=== PATIENT | female | born 1950 | race Caucasian/White ===

== ENCOUNTER 2023-07-29 21:29 | Inpatient (IN) ==
[2023-07-29] MEDS ORDERED: IOPAMIDOL 100 ML BOTTLE IV ONE (21:30)
[2023-07-29] MEDS ORDERED: 0.9 % SODIUM CHLORIDE 1,000 ML IV ONE ×2 (21:44→22:20)
[2023-07-29] MEDS ORDERED: ONDANSETRON 4 MG/2 ML VIAL IV ONE (21:44)
[2023-07-29] MEDS ORDERED: ACETAMINOPHEN 325 MG TABLET PO ONE (21:44)
[2023-07-29] MEDS ORDERED: VANCOMYCIN 1,000 MG in 0.9 % SODIUM CHLORIDE 250 ML IV ONE (21:53)
[2023-07-29 22:02] LABS: POC Calcium, Ionized 1.04 (1.16-1.32); POC Potassium 3.4 (3.3-5.1)
[2023-07-29 23:06] LABS: Basophils # (Auto) 0.03 K/mcL (0.00-0.30); Basophils % (Auto) 0.2 % (0.0-2.0); Eosinophils # (Auto) 0 K/mcL (0.00-0.70); Eosinophils % (Auto) 0 % (0.0-7.0); Hematocrit 42.4 % (34.1-44.9); Hemoglobin 13.8 g/dL (11.2-15.7); Lymphocytes # (Auto) 1.58 K/mcL (1.50-4.80); Lymphocytes % (Auto) 9.9 % (15.5-49.0); Mean Corpuscular HGB Conc 32.5 g/dL (31.0-36.0); Mean Platelet Volume 11.4 fL (8.8-12.5); Monocytes # (Auto) 1.27 K/mcL (0.10-0.90); Neutrophils % (Auto) 81.5 % (38.0-78.0); Platelet Count 193 K/mcL (140-440); RBC 4.93 M/mcL (3.59-5.38); Red Cell Distribution Width 15.5 % (11.5-14.5)
[2023-07-29 23:21] LABS: Creatine Kinase 220 U/L (24-170)
[2023-07-30 00:26] LABS: Appearance,Urine HAZY (Clear); Bilirubin,Urine Negative (Negative); Color,Urine Yellow; Culture Indicated,Urine Yes; Glucose,Urine (UA) Negative (Negative); Ketones,Urine 20 mg/dL (Negative); Leukocyte Esterase,Urine Negative /uL (Negative); Mucus,Urine FEW /hpf; Nitrate,Urine Negative (Negative); Protein,Urine 100 mg/dL (Negative); Specific Gravity,Urine 1.024 (1.000-1.035); Urine Budding Yeast FEW /hpf; Urine Granular Cast 20 /lph (0-0); Urine RBC 1 /hpf (0-3); Urine Squamous Epithelial Cell < 1 /hpf (0-4); Urine WBC 5 /hpf (0-4); Urobilinogen,Urine Negative
[2023-07-30] MEDS: 0.9 % SODIUM CHLORIDE 250 ML IV SCH ×4 (00:31→13:55)
[2023-07-30] MEDS ORDERED: LEVOFLOXACIN 750 MG/150 ML BAG IV ONE (00:44)
[2023-07-30] MEDS: SODIUM CHLORIDE 0.9% IV SCH ×2 (00:45→08:16)
[2023-07-30] MEDS: NOREPINEPHRINE BITARTRATE IV SCH ×2 (00:45→08:16)
[2023-07-30] MEDS ORDERED: IPRATROPIUM/ALBUTEROL 3 ML AMPUL.NEB NEB ONE ×2 (00:50→06:58)
[2023-07-30] MEDS ORDERED: SENNOSIDES 1 TABLET PO PRN (03:07)
[2023-07-30] MEDS ORDERED: 0.9 % SODIUM CHLORIDE 1,000 ML IV SCH (03:07)
[2023-07-30] MEDS ORDERED: ALBUTEROL SULFATE 2.5 MG/3 ML NEBULIZER NEB PRN (03:07)
[2023-07-30] MEDS ORDERED: LACTULOSE 20 GM/30 ML ORAL.SOL PO PRN (03:07)
[2023-07-30] MEDS ORDERED: ONDANSETRON 4 MG/2 ML VIAL IV PRN (03:07)
[2023-07-30] MEDS: IPRATROPIUM/ALBUTEROL 3 ML AMPUL.NEB NEB SCH ×2 (03:13→07:04)
[2023-07-30] MEDS: 0.9 % SODIUM CHLORIDE 10 ML SYRINGE IV SCH ×3 (06:19→20:02)
[2023-07-30] MEDS ORDERED: ACETAMINOPHEN 325 MG TABLET PO ONE (06:32)
[2023-07-30] MEDS: ACETAMINOPHEN 325 MG TABLET PO PRN ×3 (06:35→23:50)
[2023-07-30 07:27] LABS: ALT/SGPT 21 U/L (<40); AST/SGOT 35 U/L (<32); Albumin 2.5 gm/dL (3.2-5.2); Albumin/Globulin Ratio 0.9 (1.0-2.3); Alkaline Phosphatase 35 U/L (39-117); Bilirubin,Direct 0.6 mg/dL (<0.3); Bilirubin,Total 1.9 mg/dL (0.1-1.0); Blood Urea Nitrogen 15 mg/dL (8-23); Calcium 7.4 mg/dL (8.6-10.4); Carbon Dioxide 20 mmol/L (22-30); Chloride 106 mmol/L (96-108); Globulin 2.8 gm/dL (2.2-3.7); Glomerular Filtration Rate 63; Glucose 109 mg/dL (70-105); Lactate Dehydrogenase 216 U/L (135-225); Phosphorous 1.6 mg/dL (2.5-4.5); Triglycerides 76 mg/dL (<150); Uric Acid 3.7 mg/dL (2.5-8.0)
[2023-07-30] MEDS ORDERED: MAGNESIUM SULFATE 2 GM/50 ML BAG IV SCH (07:55)
[2023-07-30 08:18] LABS: Basophils # (Auto) 0.03 K/mcL (0.00-0.30); Basophils % (Auto) 0.3 % (0.0-2.0); Eosinophils # (Auto) 0 K/mcL (0.00-0.70); Eosinophils % (Auto) 0 % (0.0-7.0); Hematocrit 38.7 % (34.1-44.9); Hemoglobin 12.1 g/dL (11.2-15.7); Lymphocytes % (Auto) 11.9 % (15.5-49.0); Mean Corpuscular HGB Conc 31.3 g/dL (31.0-36.0); Mean Platelet Volume 11.2 fL (8.8-12.5); Monocytes # (Auto) 0.83 K/mcL (0.10-0.90); Monocytes % (Auto) 7.6 % (1.0-12.0); Neutrophils % (Auto) 79.9 % (38.0-78.0); Platelet Count 192 K/mcL (140-440); Red Cell Distribution Width 15.7 % (11.5-14.5)
[2023-07-30] MEDS ORDERED: POTASSIUM PHOSPHATE 40 MEQ in DEXTROSE 5% IN WATER 500 ML IV SCH (09:00)
[2023-07-30] MEDS ORDERED: 0.9 % SODIUM CHLORIDE 1,000 ML IV ONE (09:06)
[2023-07-30] MEDS: DOCUSATE SODIUM 100 MG CAPSULE PO SCH ×2 (10:51→19:09)
[2023-07-30] MEDS: Fluticasone-Umeclidin-Vilanter [Trelegy Ellipta] INH SCH (10:52)
[2023-07-30] MEDS: ENOXAPARIN 40 MG/0.4 ML SYRINGE SQ SCH (10:56)
[2023-07-30] MEDS ORDERED: IOPAMIDOL 100 ML BOTTLE IV ONE (12:24)
[2023-07-30] MEDS: PHENYLEPHRINE 20 MG in 0.9 % SODIUM CHLORIDE 248 ML IV SCH ×4 (12:36→23:40)
[2023-07-30] MEDS ORDERED: LEVOFLOXACIN 750 MG/150 ML BAG IV SCH (16:00)
[2023-07-30] MEDS ORDERED: FUROSEMIDE 20 MG/2 ML VIAL IV ONE ×2 (16:02→16:29)
[2023-07-30] MEDS ORDERED: MAGNESIUM SULFATE 2 GM/50 ML BAG IV ONE (16:07)
[2023-07-30] MEDS ORDERED: POTASSIUM PHOSPHATE 40 MEQ in DEXTROSE 5% IN WATER 500 ML IV ONE (16:07)
[2023-07-30] MEDS: MEROPENEM 1 GM in 0.9 % SODIUM CHLORIDE 50 ML IV SCH ×2 (16:34→22:03)
[2023-07-30] MEDS ORDERED: PHENYLEPHRINE 10 MG/ML VIAL ONE ×2 (21:01→23:17)
[2023-07-31] MEDS: 0.9 % SODIUM CHLORIDE 250 ML IV SCH ×2 (02:10→13:12)
[2023-07-31] MEDS ORDERED: PHENYLEPHRINE 10 MG/ML VIAL ONE (02:14)
[2023-07-31] MEDS: PHENYLEPHRINE 20 MG in 0.9 % SODIUM CHLORIDE 248 ML IV SCH ×4 (02:34→17:17)
[2023-07-31] MEDS ORDERED: 0.9 % SODIUM CHLORIDE 250 ML ONE (05:16)
[2023-07-31] MEDS: 0.9 % SODIUM CHLORIDE 10 ML SYRINGE IV SCH ×3 (06:00→20:14)
[2023-07-31] MEDS: MEROPENEM 1 GM in 0.9 % SODIUM CHLORIDE 50 ML IV SCH ×3 (06:00→21:53)
[2023-07-31 06:53] LABS: Basophils # (Auto) 0.02 K/mcL (0.00-0.30); Basophils % (Auto) 0.1 % (0.0-2.0); Eosinophils # (Auto) 0.01 K/mcL (0.00-0.70); Eosinophils % (Auto) 0.1 % (0.0-7.0); Hematocrit 40.6 % (34.1-44.9); Lymphocytes % (Auto) 7.9 % (15.5-49.0); Mean Cell Volume 92.9 fL (80.0-100.0); Mean Corpuscular HGB Conc 29.6 g/dL (31.0-36.0); Mean Platelet Volume 11.2 fL (8.8-12.5); Monocytes # (Auto) 0.96 K/mcL (0.10-0.90); Monocytes % (Auto) 6.9 % (1.0-12.0); Platelet Count 166 K/mcL (140-440); RBC 4.37 M/mcL (3.59-5.38)
[2023-07-31 07:00] LABS: ALT/SGPT 21 U/L (<40); AST/SGOT 28 U/L (<32); Albumin 1.9 gm/dL (3.2-5.2); Albumin/Globulin Ratio 0.6 (1.0-2.3); Alkaline Phosphatase 41 U/L (39-117); Bilirubin,Direct 0.4 mg/dL (<0.3); Bilirubin,Total 0.8 mg/dL (0.1-1.0); Blood Urea Nitrogen 14 mg/dL (8-23); Calcium 7.2 mg/dL (8.6-10.4); Carbon Dioxide 20 mmol/L (22-30); Chloride 110 mmol/L (96-108); Globulin 3.3 gm/dL (2.2-3.7); Glomerular Filtration Rate 85; Glucose 107 mg/dL (70-105); Lactate Dehydrogenase 282 U/L (135-225); Phosphorous 1.8 mg/dL (2.5-4.5); Triglycerides 99 mg/dL (<150); Uric Acid 2.9 mg/dL (2.5-8.0)
[2023-07-31] MEDS ORDERED: POTASSIUM CHLORIDE 20 MEQ TABLET PO ONE (07:15)
[2023-07-31] MEDS: DOCUSATE SODIUM 100 MG CAPSULE PO SCH ×2 (07:38→20:13)
[2023-07-31] MEDS ORDERED: POTASSIUM PHOSPHATE 40 MEQ in DEXTROSE 5% IN WATER 500 ML IV ONE (08:00)
[2023-07-31] MEDS: Fluticasone-Umeclidin-Vilanter [Trelegy Ellipta] INH SCH (09:09)
[2023-07-31] MEDS: ENOXAPARIN 40 MG/0.4 ML SYRINGE SQ SCH (09:09)
[2023-07-31] MEDS: AZITHROMYCIN 500 MG in DEXTROSE 5% IN WATER 250 ML IV SCH (13:00)
[2023-07-31] MEDS: IPRATROPIUM/ALBUTEROL 3 ML AMPUL.NEB NEB PRN (13:11)
[2023-07-31] MEDS: ACETAMINOPHEN 325 MG TABLET PO PRN (14:55)
[2023-07-31] MEDS: FAMOTIDINE 20 MG TABLET PO SCH (20:12)
[2023-08-01] MEDS: 0.9 % SODIUM CHLORIDE 250 ML IV SCH ×2 (03:48→16:09)
[2023-08-01] MEDS: ACETAMINOPHEN 325 MG TABLET PO PRN (05:50)
[2023-08-01] MEDS: MEROPENEM 1 GM in 0.9 % SODIUM CHLORIDE 50 ML IV SCH ×3 (05:50→21:45)
[2023-08-01] MEDS: 0.9 % SODIUM CHLORIDE 10 ML SYRINGE IV SCH ×3 (05:51→21:47)
[2023-08-01 06:16] LABS: Basophils # (Auto) 0.07 K/mcL (0.00-0.30); Basophils % (Auto) 0.6 % (0.0-2.0); Eosinophils # (Auto) 0 K/mcL (0.00-0.70); Eosinophils % (Auto) 0 % (0.0-7.0); Hematocrit 40.9 % (34.1-44.9); Hemoglobin 12.6 g/dL (11.2-15.7); Lymphocytes # (Auto) 1.18 K/mcL (1.50-4.80); Lymphocytes % (Auto) 9.7 % (15.5-49.0); Mean Corpuscular HGB Conc 30.8 g/dL (31.0-36.0); Mean Platelet Volume 11.3 fL (8.8-12.5); Monocytes # (Auto) 0.72 K/mcL (0.10-0.90); Monocytes % (Auto) 5.9 % (1.0-12.0); Neutrophils % (Auto) 81.6 % (38.0-78.0); Platelet Count 172 K/mcL (140-440); RBC 4.65 M/mcL (3.59-5.38); Red Cell Distribution Width 16.2 % (11.5-14.5); WBC 12.2 K/mcL (4.5-11.0)
[2023-08-01 06:46] LABS: ALT/SGPT 22 U/L (<40); AST/SGOT 22 U/L (<32); Albumin 2.1 gm/dL (3.2-5.2); Albumin/Globulin Ratio 0.6 (1.0-2.3); Alkaline Phosphatase 48 U/L (39-117); Bilirubin,Direct 0.2 mg/dL (<0.3); Bilirubin,Total 0.6 mg/dL (0.1-1.0); Blood Urea Nitrogen 13 mg/dL (8-23); Calcium 7.8 mg/dL (8.6-10.4); Carbon Dioxide 26 mmol/L (22-30); Chloride 105 mmol/L (96-108); Globulin 3.4 gm/dL (2.2-3.7); Glomerular Filtration Rate 85; Glucose 122 mg/dL (70-105); Lactate Dehydrogenase 254 U/L (135-225); Phosphorous 1.1 mg/dL (2.5-4.5); Triglycerides 128 mg/dL (<150); Uric Acid 2.8 mg/dL (2.5-8.0)
[2023-08-01] MEDS: IPRATROPIUM/ALBUTEROL 3 ML AMPUL.NEB NEB PRN (07:00)
[2023-08-01] MEDS ORDERED: POTASSIUM PHOSPHATE 40 MEQ in DEXTROSE 5% IN WATER 500 ML IV ONE (07:13)
[2023-08-01] MEDS: ENOXAPARIN 40 MG/0.4 ML SYRINGE SQ SCH (08:07)
[2023-08-01] MEDS: NEUTRA PHOS 1 PACKET PO SCH ×2 (08:07→21:44)
[2023-08-01] MEDS: DOCUSATE SODIUM 100 MG CAPSULE PO SCH ×2 (08:07→21:21)
[2023-08-01] MEDS: Fluticasone-Umeclidin-Vilanter [Trelegy Ellipta] INH SCH (08:07)
[2023-08-01] MEDS: AZITHROMYCIN 500 MG in DEXTROSE 5% IN WATER 250 ML IV SCH (11:50)
[2023-08-01] MEDS: LOPERAMIDE 2 MG CAPSULE PO PRN ×2 (11:59→12:59)
[2023-08-01] MEDS: methylPREDNISolone SOD SUCC 125 MG/2 ML VIAL IV SCH ×2 (14:21→21:46)
[2023-08-01] MEDS: FAMOTIDINE 20 MG TABLET PO SCH ×2 (17:22→21:22)
[2023-08-01] MEDS ORDERED: FAMOTIDINE 10 MG PO SCH (21:00)
[2023-08-02] MEDS: 0.9 % SODIUM CHLORIDE 10 ML SYRINGE IV SCH (05:37)
[2023-08-02] MEDS: MEROPENEM 1 GM in 0.9 % SODIUM CHLORIDE 50 ML IV SCH (05:37)
[2023-08-02] MEDS: methylPREDNISolone SOD SUCC 125 MG/2 ML VIAL IV SCH (05:38)
[2023-08-02 06:42] LABS: Basophils # (Auto) 0.07 K/mcL (0.00-0.30); Basophils % (Auto) 0.6 % (0.0-2.0); Eosinophils # (Auto) 0 K/mcL (0.00-0.70); Eosinophils % (Auto) 0 % (0.0-7.0); Hematocrit 35.2 % (34.1-44.9); Hemoglobin 11.2 g/dL (11.2-15.7); Lymphocytes # (Auto) 0.74 K/mcL (1.50-4.80); Lymphocytes % (Auto) 6.4 % (15.5-49.0); Mean Cell Volume 86.5 fL (80.0-100.0); Mean Corpuscular HGB Conc 31.8 g/dL (31.0-36.0); Mean Platelet Volume 11.5 fL (8.8-12.5); Monocytes # (Auto) 0.42 K/mcL (0.10-0.90); Monocytes % (Auto) 3.6 % (1.0-12.0); Neutrophils % (Auto) 83.1 % (38.0-78.0); Platelet Count 173 K/mcL (140-440); RBC 4.07 M/mcL (3.59-5.38); Red Cell Distribution Width 15.8 % (11.5-14.5); WBC 11.7 K/mcL (4.5-11.0)
[2023-08-02 07:20] LABS: ALT/SGPT 27 U/L (<40); AST/SGOT 23 U/L (<32); Albumin 2.1 gm/dL (3.2-5.2); Albumin/Globulin Ratio 0.7 (1.0-2.3); Alkaline Phosphatase 49 U/L (39-117); Bilirubin,Total 0.6 mg/dL (0.1-1.0); Blood Urea Nitrogen 11 mg/dL (8-23); Calcium 8.2 mg/dL (8.6-10.4); Carbon Dioxide 27 mmol/L (22-30); Chloride 104 mmol/L (96-108); Globulin 3.1 gm/dL (2.2-3.7); Glomerular Filtration Rate 95; Glucose 166 mg/dL (70-105)
[2023-08-02] MEDS: DOCUSATE SODIUM 100 MG CAPSULE PO SCH (07:52)
[2023-08-02] MEDS: ACETAMINOPHEN 325 MG TABLET PO PRN (08:16)
[2023-08-02] MEDS: ENOXAPARIN 40 MG/0.4 ML SYRINGE SQ SCH (08:17)
[2023-08-02] MEDS: NEUTRA PHOS 1 PACKET PO SCH (08:17)
[2023-08-02] MEDS: Fluticasone-Umeclidin-Vilanter [Trelegy Ellipta] INH SCH (08:17)
[2023-08-02] MEDS: IPRATROPIUM/ALBUTEROL 3 ML AMPUL.NEB NEB PRN (08:33)
[2023-08-02] MEDS: AZITHROMYCIN 500 MG in DEXTROSE 5% IN WATER 250 ML IV SCH (10:49)
== END 2023-08-02 13:05 | disposition home or self-care (01) | DRG 871 ==
LOC: ED 21:29 → ICU 07-30 02:52
PROVIDERS: ADMIT Internal Medicine; ATTEND Internal Medicine